=== PATIENT | female | born 1990 | race Caucasian/White ===

== ENCOUNTER 2020-10-21 17:46 | Emergency (ER) | payer OTHER ==
[~2020-10-21 17:46] MED LIST: DAKIN'S473 M1 EXT; IBUPROFEN800 MG PO; LEVAQUIN750 MG PO; MACROBID 100 M100 MG PO; NORCO 5-325 TA1 EACH PO; VITAMIN C500 M1 PO
[2020-10-21 19:01] LABS: RED BLOOD COUNT 4.46 M/UL (4.00-5.10); WHITE BLOOD COUNT 11.6 K/UL (4.5-11.0)
[2020-10-21 19:25] LABS: BUN/CREATININE RATIO 10 (0-10)
[2020-10-21] MEDS ORDERED: LEVOFLOXACIN750 MG PO (21:44)
[2020-10-21] MEDS ORDERED: IBUPROFEN800 MG PO (21:44)
[2020-10-21] MEDS ORDERED: PYRIDIUM200 MG PO (21:44)
[2020-10-21] MEDS ORDERED: ONDANSETRON ODT4 MG SL (21:44)
[2020-10-21] MEDS ORDERED: K-DUR TAB 20 M20 MEQ PO (21:46)
== END 2020-10-21 22:00 | disposition home or self-care (01) ==
LOC: ER1 17:46
DX: N10 Acute pyelonephritis (principal); E87.6 Hypokalemia; Z90.49 Acquired absence of other specified parts of digestive tract; Z98.51 Tubal ligation status; Z88.1 Allergy status to other antibiotic agents; Z20.822 Contact with and (suspected) exposure to COVID-19
CPT/HCPCS: 71045; 80053; 81001; 83605; 83690; 84703; 85025; 87040; 87077; 87081; 87086; 87186; 87880; 99284; U0002